=== PATIENT | female | born 1970 ===

== ENCOUNTER 2018-12-23 11:51 | Emergency (ER) | payer MEDICAID ==
[~2018-12-23] VITALS: Ht 167.6 cm; Wt 119.0 kg
--- NOTE | 2018-12-23 12:04 | NUR ---
PT REFUSING BP IN TRIAGE
--- NOTE | 2018-12-23 12:13 | NUR ---
PATIENT [facility] BACK FROM [facility] WITH CHIEF COMPLAINT OF 10/10 PAIN IN LOWER ABDOMEN STARTING ABOUT ONE HOUR AGO. THE PATIENT IS ALERT, ORIENTED, WARM AND DRY. SON AT BEDSIDE.
[2018-12-23] MEDS ORDERED: ONDANSETRON 2MG/ML, 2ML ONE (12:22)
[2018-12-23] MEDS ORDERED: MORPHINE SULFATE 4 MG/ML, 1ML ONE ×2 (12:22→13:04)
[2018-12-23] MEDS ORDERED: LORazepam 1MG TABLET ONE (12:22)
[2018-12-23] MEDS ORDERED: ONDANSETRON 2MG/ML, 2ML IVPush ONE (12:30)
[2018-12-23] MEDS ORDERED: SODIUM CHLORIDE FLUSH 10ML SYR IVF ONE (12:30)
[2018-12-23] MEDS ORDERED: LORazepam 1MG TABLET PO ONE (12:30)
[2018-12-23 12:31] LABS: BASOPHILS % (AUTO) 1 % (0-1); EOSINOPHILS # (AUTO) 0.43 x10^3/uL (0-0.4); EOSINOPHILS % (AUTO) 3 % (1-7); LYMPHOCYTES # (AUTO) 2.66 x10^3/uL (1-3.4); LYMPHOCYTES % (AUTO) 17 % (22-44); MD NO; MEAN CORPUSCULAR HEMOGLOBIN 25.2 pg (27.0-34.8); MEAN CORPUSCULAR VOLUME 78.8 fL (80-100); MEAN PLATELET VOLUME 9.4 fL (7.4-10.4); MONOCYTES # (AUTO) 0.77 x10^3/uL (0.2-0.8); MONOCYTES % (AUTO) 5 % (2-9); NEUTROPHILS # (AUTO) 12.16 x10^3/uL (1.8-6.8); NEUTROPHILS % (AUTO) 75 % (42-75); PLATELET COUNT 315 x10^3/uL (130-400); RED BLOOD COUNT 5.42 x10^6/uL (3.82-5.3)
[2018-12-23] MEDS: MORPHINE SULFATE 4 MG/ML, 1ML IVPush PRN ×2 (12:34→13:10)
[2018-12-23 12:46] LABS: ALBUMIN 3.5 g/dL (3.4-5.0); ANION GAP 7 mmol/L (5-15); CALCIUM 8.7 mg/dL (8.5-10.1); CHLORIDE 105 mmol/L (98-107)
[2018-12-23 12:54] LABS: ALANINE AMINOTRANSFERASE 16 U/L (12-78); ALKALINE PHOSPHATASE 86 U/L (45-117); BILIRUBIN,TOTAL 0.3 mg/dL (0.2-1.0); CREATININE 0.56 mg/dL (0.55-1.02); TOTAL PROTEIN 7.8 g/dL (6.4-8.2)
--- NOTE | 2018-12-23 13:05 | NUR ---
PT AMBULATED TO BR WITH STEADY GAIT. ATTEMPTING TO OBTAIN A UA SAMPLE FROM PT. PT UPSET AND CRYING IN THE RM, STATING YOU NEED TO HELP ME WITH MY PAIN, PT STATES SHE HAD NO RELIEF FROM PREVIOUS PAIN MEDICATION. THIS RN TO RE MEDICATE PER PT REQUEST. PROVIDER UPDATED
--- NOTE | 2018-12-23 13:15 | NUR ---
PT REFUSING TO GIVE URINE SAMPLE UNTIL HER PAIN IS CONTROLLED, PT MEDICATED PER MAR. PT WAITING TO GO TO CT
--- NOTE | 2018-12-23 13:25 | NUR ---
PT STATES SHE THINKS SHE DYING. PT NOW C/O "CHEST TIGHTNESS" WILL PERFORM EKG, ERPROVIDER UPDATED.
--- NOTE | 2018-12-23 14:02 | NUR ---
PT TO CT
[2018-12-23] MEDS ORDERED: OMNIPAQUE 350 MG/ML, 100ML BOTTLE ONE (14:08)
--- NOTE | 2018-12-23 14:18 | NUR ---
PT BACK FROM CT REQUESTING WATER, DICUSSED NEED TO WAIT FOR RESULTS OF CT. PT GIVEN UA CUP, DIRECTED TO THE BR IN ATTEMPT TO COLLECT UA
--- NOTE | 2018-12-23 14:38 | NUR ---
UA COLLECTED AND SENT TO LAB, ER IN TO UPDATE PT
[2018-12-23 15:04] VITALS: BP 120/45
[2018-12-23] MEDS ORDERED: FENTANYL PF 100 MCG/2ML ONE (15:35)
[2018-12-23] MEDS ORDERED: KETOROLAC 30 MG/1 ML ONE (15:37)
[2018-12-23 15:38] LABS: MICROSCOPIC INDICATED
--- NOTE | 2018-12-23 15:44 | NUR ---
PT MEDICATED PER APR. GIVEN DISCHARGE INSTRUCTIONS, UNDERSTANDING STATED. PT IN CARE OF FAMILY ON DISCHARGE DAY. ALL BELONGINGS VERIFIED WITH PT ON DC
[2018-12-23 15:46] LABS: CULTURE INDICATED? NO
[2018-12-23] MEDS ORDERED: KETOROLAC 30 MG/1 ML IVPush ONE (16:00)
[2018-12-23] MEDS ORDERED: FENTANYL PF 100 MCG/2ML IVPush ONE (16:00)
== END 2018-12-23 15:53 | disposition home or self-care (01) ==
LOC: ED 14:17
DX: N83.201 Unspecified ovarian cyst, right side (principal); R10.31 Right lower quadrant pain; R10.32 Left lower quadrant pain; R10.30 Lower abdominal pain, unspecified; G89.29 Other chronic pain; M19.90 Unspecified osteoarthritis, unspecified site; Z90.710 Acquired absence of both cervix and uterus; F17.200 Nicotine dependence, unspecified, uncomplicated; Z88.1 Allergy status to other antibiotic agents
CPT/HCPCS: 36415; 74177; 80053; 81001; 83690; 84703; 85025; 93005; 96374; 96375; 96376; 99284; J1885; J2270; J2405; J3010; Q9967